=== PATIENT | female | born 2000 | race Two or more races ===

== ENCOUNTER 2024-12-10 14:35 | Emergency (ER) | payer MEDICAID, SELFPAY ==
[2024-12-10 14:36] VITALS: BMI 29.9
[2024-12-10 14:51] VITALS: BP 108/76; PULSE 105; RESP 20; TEMP 38.2; O2SAT 95
--- NOTE | 2024-12-10 14:55 | PD.EDURI ---
Upper Respiratory Inf. RME/HPI General Chief Complaint: Flu Like Symptoms Stated Complaint: COUGH, CHILLS, FEVER, BODYACHES, BACK PAIN Time Seen by Provider: 12/10/24 14:49 Arrival date/time: 12/10/24 14:35 24-year-old female reports with complaints of several day history is of bodyaches fevers cough chills runny nose. Patient states that she has taken some [id number] medications with no improvement of symptoms. She denies chest pain nausea vomiting abdominal pain weakness or fatigue. She reports difficulty with deep breaths and episodically Limitations: no limitations Related Data Home Medications ?Medication ?Instructions ?Recorded ?Confirmed nitrofurantoin 100 mg PO QDAY 12/07/22 12/07/22 monohydrate/macrocrystals 100 mg capsule Previous Rx's ?Medication ?Instructions ?Recorded hydrocodone 5 mg-acetaminophen 325 1 tab PO Q6H PRN pain #14 tabs 12/08/22 mg tablet ibuprofen 600 mg tablet 600 mg PO Q6H PRN 4 #20 tabs 12/08/22 ibuprofen 800 mg tablet (IBU) 800 mg PO Q8H #20 tabs 01/05/24 pseudoephedrine HCl 120 mg 120 mg PO Q12H PRN nasal 01/05/24 tablet,extended release congestion #30 tabs Allergies Allergy/AdvReac Type Severity Reaction Status Date / Time No Known Allergies Allergy Verified 12/10/24 14:39 Review of Systems Constitutional Constitutional: Reports body ache(s), Reports chills, Reports fever(s) and Denies headache(s) ENT Ears, Nose, Mouth, and Throat: Denies dizziness, Denies headache(s), Reports sinus pressure and Denies sore throat Cardiovascular Cardiovascular: Denies chest pain and Reports dyspnea Respiratory Respiratory: Reports cough and Reports dyspnea Gastrointestinal Gastrointestinal: Denies nausea and Denies vomiting Integumentary/Breasts Skin/Breast: Denies erythema and Denies rash Neurologic Neurologic: Denies dizziness and Denies headache(s) Hematologic/Lymphatic Hematologic/Lymphatic: Denies easy bleeding and Denies easy bruising Past Medical History Past Medical History NEUROLOGIC: Negative Neurological Disorders or Seizures CARDIAC: Negative Cardiac Disorders, Congestive Heart Failure, Edema, Cellulitis or Varicose Veins RESPIRATORY: Negative Chronic Obstructive Pulmonary Disease (COPD), Tuberculosis or Sleep Apnea GASTROINTESTINAL: Positive Gastrointestinal Disorders, Gall Bladder Disease (danial 2020) and Gastroesophageal Reflux Disease; Negative Hepatitis or Colorectal Cancer GENITOURINARY: Negative Genitourinary Disorders, Renal Disease or Prostate Cancer REPRODUCTIVE: Positive Previous Pregnancies; Negative Breast Cancer, Pelvic Inflammatory Disease or Testicular Cancer MUSCULOSKELETAL: Negative Musculoskeletal Disorders or Bone Cancer ENDOCRINE: Negative Endocrine Disorders, Diabetes Mellitus Type 1 or Diabetes Mellitus Type 2 HEMATOLOGIC: Negative Blood Disorders or Anemia PSYCHO/SOCIAL: Positive Depression and Anxiety; Negative Self-Mutilation, Attention Deficit Disorder, Attention Deficit Hyperactivity Disorder, Depression or Post Traumatic Stress Disorder OTHER HISTORY: Negative Hospitalization, Autoimmune Disease, Down Syndrome, Developmental Delay, Shingles, Falls, Blood Transfusions, Blood Transfusion Reaction, Anesthesia Reactions, Organ Transplant, Chemotherapy, Radiation Therapy, Hyperbaric Therapy, MRSA, VRSA, Vancomycin-Resistant Enterococci, Human Immunodeficiency Virus (HIV), Chicken Pox, Measles, Mumps, Rubella ([place] Measles), Pertussis, Clostridium Difficile, Cancer, Breast Cancer, Cervical Cancer, Colorectal Cancer, Lung Cancer, Ovarian Cancer, Prostate Cancer or Testicular Cancer Family History FAMILY HISTORY: Positive Family Cancer (maternal grandmother stomach cancer, maternal aunt stomach); Negative Family Psychiatric Problems, Family Respiratory Disorders, Family Cardiac Disorders, Family Gastrointestinal Problems, Family Surgery or Family Anesthesia Reaction Surgical History SURGICAL: Negative Cardiac Surgery, Open Heart Surgery, Coronary Artery Bypass Graft, Valve Replacement, Vascular Surgery, Coronary Stent, Cardiac Catheterization, Pacemaker, Angiogram, Auto Implanted Cardiovert Defib, Carotid Endarterectomy, Endocrine Surgery, Ear Surgery, Tympanostomy Tube, Eye Surgery, Nose Surgery, Oral Surgery, Tonsillectomy, Adenoidectomy, Cochlear Implant, Corneal Transplant, Throat Surgery, Abdominal Surgery, Nephrectomy, Joint Replacement, Neurologic Surgery, Mastectomy, Section, Vasectomy or Organ Transplant Social History SMOKING STATUS: Never smoker SECOND HAND EXPOSURE: Yes (mother smokes outside) ED Exam General Limitations: Present no limitations General appearance: Present alert and in no apparent distress Head Head exam: Present atraumatic Eye Eye exam: Present normal appearance, PERRL and EOMI ENT ENT exam: Present normal exam, normal oropharynx and mucous membranes moist Neck Neck exam: Present normal inspection, full ROM and trachea midline Chest Chest inspection: Present normal inspection and symmetric chest wall rise Respiratory Respiratory exam: Present normal lung sounds bilaterally Cardiovascular Cardiovascular exam: Present regular rate, normal rhythm and normal heart sounds Abdominal Exam Abdominal exam: Present soft and normal bowel sounds Extremities Exam Extremities exam: Present normal inspection and full ROM Back Exam Back exam: Present normal inspection and full ROM Neurological Exam Neurological exam: Present alert, oriented X3 and CN II-XII intact Psychiatric Psychiatric exam: Present normal affect and normal mood Skin Skin exam: Present warm, dry, intact and normal color Course Quality Measures none Orders Category Date Time Status Bedside COVID-19 Antigen Test NOW Care 12/10/24 14:54 Active Bedside Influenza A&B Antigen Test NOW Care 12/10/24 14:55 Completed XR chest 2V Stat Exams 12/10/24 14:56 Completed ALBUTEROL RT 0.5ml [Proventil Rt 0.5ml] Med 12/10/24 15:21 Discontinued 2.5 mg INH X1 ONE Sodium Chloride Rt Nuzhat 0.9% [NS Rt Nuzhat 0.9%] Med 12/10/24 15:21 Active 3 ml INH PRN PRN Vital Signs Vital signs: Vital Signs Temperature 100.7 F H 12/10/24 14:51 Pulse Rate 105 H 12/10/24 14:51 Respiratory Rate 20 12/10/24 14:51 Blood Pressure 108/76 12/10/24 14:51 Pulse Oximetry (%) 95 12/10/24 14:51 Oxygen Delivery Method Room Air 12/10/24 14:51 Upper Respiratory Infection Patient data External records reviewed:: None Clinical information provided by:: patient Social determinants that could affect healthcare access:: none Patient has the following chronic illnesses:: none How is presenting disease/condition affected by chronic disease/condition?: no chronic disease Evaluation data The following diagnostics were reviewed and interpreted by me:: lab results Lab and/or radiology exams considered but not ordered:: none Interpretation Summary: COVID-negative flu positive chest x-ray negative for infiltrates or opacities Medications / Prescriptions Medications or Prescriptions considered but not ordered:: None Medication administrations:: Medication Administration History Sodium Chloride (Sodium Chloride Rt Nuzhat 0.9% 3 Ml Nebu) 3 ml INH PRN PRN PRN Reason: SOLN Stop: 01/09/25 15:20 Last Admin: 12/10/24 16:01 Dose: 3 ml Documented By: VINCENT Discontinued Medications Albuterol (Albuterol Rt 2.5 Mg/0.5 Ml Nebu) 2.5 mg INH X1 ONE Stop: 12/10/24 15:22 Last Admin: 12/10/24 16:01 Dose: 2.5 mg Documented By: VINCENT Albuterol neb treatment Consultations Consultation(s) initiated? (list below): No Diagnosis Upper Respiratory Differential Diagnosis: upper respiratory infection, viral infection and influenza Most likely diagnosis given after review of the tests above:: Influenza A Admission Indicated Admission indicated?: not indicated Admission Request Was there a request for admission?: No Disposition Plan Disposition Plan: Discharge Discharge Attestation Discharge Attestation: The patient and all family members were given an opportunity to ask questions and understood the discharge instructions. Discharge instructions specifically effects, indications for sooner follow up or return to the emergency department, and the expected course of current diagnosis. Patient condition: Stable Discharge Plan Plan Patient Disposition: HOME (Self Care) Prescriptions/Referrals Prescriptions/Med Rec: No Action ibuprofen [IBU] 800 mg tablet 800 mg PO Q8H Qty: 20 0RF pseudoephedrine HCl 120 mg tablet extended release 120 mg PO Q12H PRN (Reason: nasal congestion) Qty: 30 0RF nitrofurantoin monohyd/m-cryst 100 mg capsule 100 mg PO QDAY Patient Comments: TAKE 1 CAPSULE BY MOUTH TWICE A DAY hydrocodone-acetaminophen 5-325 mg tablet 1 tab PO Q6H MDD 4 PRN (Reason: pain) Qty: 14 0RF ibuprofen 600 mg tablet 600 mg PO Q6H PRN (Reason: 4) Qty: 20 0RF Problem List Clinical Impression: Influenza A Patient/Caregiver Discharge Instructions Discharge Activity: activity as tolerated Education Materials: ED Influenza (Adult) Additional Instructions: Your lab test were positive for the flu take medications as directed, hydrate well, get plenty of rest and follow up with PCP if you are not better in 5 days. The cough associated with the flu virus can sometimes last for several weeks after all other symptoms have gone, take OTC cough medication as needed for your cough Print Language: Ukrainian Stand Alone Forms: [employer] Award Info., Work/School Release, Patient Portal Info Letter
--- NOTE | 2024-12-10 14:56 | XR_ITS ---
Examination: PA lateral chest 2 views TECHNIQUE: Upright PA lateral chest 2 views Exam date and time: December 10, 2024 1509 hours INDICATIONS: Fever coughing headache beginning today with dyspnea FINDINGS: Normal heart size Lungs are clear. The osseous structures are intact IMPRESSION: No active disease
[2024-12-10 16:01] VITALS: PULSE 125
[2024-12-10] MEDS: SODIUM CHLORIDE RT SOL 0.9% 3 ML NEBU INH (16:01)
[2024-12-10] MEDS: ALBUTEROL RT 2.5 MG/0.5 ML NEBU INH (16:01)
[2024-12-10 16:02] VITALS: PULSE 120; RESP 26; O2SAT 99
== END 2024-12-10 16:31 | disposition home or self-care (01) ==
PROVIDERS: Emergency Provider Emergency Medicine
DX: J10.1 Influenza due to other identified influenza virus with other respiratory manifestations (principal)
CPT/HCPCS: 71046; 87400; 87811; 94640; 99283

== ENCOUNTER 2025-04-03 02:18 | Emergency (ER) | payer MEDICAID, SELFPAY ==
[2025-04-03 02:19] VITALS: BMI 29.7
[2025-04-03 02:26] VITALS: BP 121/86; PULSE 86; RESP 19; TEMP 36.9; O2SAT 100
--- NOTE | 2025-04-03 02:29 | PD.EDURI ---
Upper Respiratory Inf. RME/HPI General Chief Complaint: Flu Like Symptoms Stated Complaint: COUGH CONGESTION Time Seen by Provider: 04/03/25 02:28 Arrival date/time: 04/03/25 02:18 RME / HPI RME / HPI Narrative: This section includes all my notes and documentations, including HPI, PE, and ED course. Kalin Kathleen MD HPI: 24 y/o female with Hx Gall Bladder Disease, Gastroesophageal Reflux Disease, and Anxiety presents to ED c/o several days with cough, congestion, sore throat, and low fever. Patient was diagnosed with Strep throat on Tuesday and was prescribed Amoxicillin. Patient is mostly concerned with severe cough that induces vomiting. No other complaints. ROS: All negative except as documented in HPI. Physical Exam: General: Alert and oriented. No acute distress when remaining still. Eyes: Conjunctivae and lids clear. ENT: No nasal congestion. Neck: Supple. Heart: RRR. Lungs: No respiratory distress. Hacking cough. Good air movement with scattered rhonchi. No wheezing, rales. Abdomen: Soft and nontender. Normal bowel sounds. No distension. No rebound or guarding. Back: No CVA tenderness. Skin: Warm and dry. Neuro: Alert and oriented X 3. At this point, diagnoses include Strep Throat, Lower Respiratory Infection Treatment here included Tylenol with Codeine, Prednisone. Significant improvement Based on my best medical judgment, made decision no further evaluation or treatment indicated at this time. Patient understands and agrees to the discharge instructions customized and printed, see below. Discharge instructions from Dr. Kathleen: --No physical exertion for 3 days to help rest the lungs. ?No smoking or exposure to smoking or pets or dust or cold or humidity. -- Amoxicillin to kill the germs causing the strep throat. --Prednisone as needed for cough. --Albuterol 2 puffs every 4-6 hours as needed for cough or shortness of breath. --Tylenol codeine for severe cough or pain. --See a private doctor next week for recheck if not completely better. --Seek immediate medical care with worsening or with any concerns. Kalin Kathleen MD Related Data Home Medications ?Medication ?Instructions ?Recorded ?Confirmed nitrofurantoin 100 mg PO QDAY 12/07/22 12/07/22 monohydrate/macrocrystals 100 mg capsule Previous Rx's ?Medication ?Instructions ?Recorded hydrocodone 5 mg-acetaminophen 325 1 tab PO Q6H PRN pain #14 tabs 12/08/22 mg tablet ibuprofen 600 mg tablet 600 mg PO Q6H PRN 4 #20 tabs 12/08/22 ibuprofen 800 mg tablet (IBU) 800 mg PO Q8H #20 tabs 01/05/24 pseudoephedrine HCl 120 mg 120 mg PO Q12H PRN nasal 01/05/24 tablet,extended release congestion #30 tabs acetaminophen 300 mg-codeine 30 mg 2 tab PO Q8H PRN pain #20 tabs 04/03/25 tablet albuterol sulfate 90 mcg/actuation 2 puff inhalation Q6H PRN 04/03/25 aerosol inhaler shortness of breath or wheezing #8.5 grams prednisone 20 mg tablet 20 mg PO BID PRN Cough #6 tabs 04/03/25 Allergies Allergy/AdvReac Type Severity Reaction Status Date / Time No Known Allergies Allergy Verified 04/03/25 02:22 Review of Systems Review of Systems Systems Reviewed: All systems reviewed, normal except as documented Past Medical History Past Medical History GASTROINTESTINAL: Positive Gastrointestinal Disorders, Gall Bladder Disease (danial 2020) and Gastroesophageal Reflux Disease REPRODUCTIVE: Positive Previous Pregnancies PSYCHO/SOCIAL: Positive Depression and Anxiety Family History FAMILY HISTORY: Positive Family Cancer (maternal grandmother stomach cancer, maternal aunt stomach) Social History SECOND HAND EXPOSURE: Yes (mother smokes outside) ED Exam Narrative Physical exam: Refer to HPI above Course Quality Measures none Orders Category Date Time Status ACETAMINOPHEN w/COD 300-30 [Tylenol w/Cod #3] Med 04/03/25 02:28 Discontinued 2 tab PO X1 ONE predniSONE Med 04/03/25 02:28 Discontinued 60 mg PO X1 ONE Vital Signs Vital signs: Vital Signs Temperature 98.5 F 04/03/25 02:26 Pulse Rate 86 04/03/25 02:26 Respiratory Rate 19 04/03/25 02:26 Blood Pressure 121/86 H 04/03/25 02:26 Pulse Oximetry (%) 100 04/03/25 02:26 Oxygen Delivery Method Room Air 04/03/25 02:26 Upper Respiratory Infection MDM Narrative MDM Narrative:: Scribe Attestation: I, Nara Pandey, am scribing for and in the presence of Dr. Kathleen. Provider Notation: Although this document has been carefully reviewed, there may still be some phonetic and other typographical errors.? These errors are purely grammatical due to imperfections in the software program and should not be construed in any way to? compromise the substance of the patient's medical care during this visit. 24 y/o female with Hx Gall Bladder Disease, Gastroesophageal Reflux Disease, and Anxiety presents to ED c/o several days with cough, congestion, sore throat, and low fever. Patient was diagnosed with Strep throat on Tuesday and was prescribed Amoxicillin. Patient is mostly concerned with severe cough that induces vomiting. No other complaints. Patient data External records reviewed:: [facility] previous records (Review prior Ed records from 12/10/24. Patient was seen for Influenza A.) Clinical information provided by:: patient Social determinants that could affect healthcare access:: none Patient has the following chronic illnesses:: Gall Bladder Disease, Gastroesophageal Reflux Disease, Depression and Anxiety How is presenting disease/condition affected by chronic disease/condition?: exacerbated by Evaluation data The following diagnostics were reviewed and interpreted by me:: other (specify) (N/A) Lab and/or radiology exams considered but not ordered:: None Interpretation Summary: N/A Medications / Prescriptions Medications or Prescriptions considered but not ordered:: None Medication administrations:: Medication Administration History Discontinued Medications Acetaminophen/Codeine Phosphate (Acetaminophen W/Cod 300-30 Tablet) 2 tab PO X1 ONE Stop: 04/03/25 02:29 Last Admin: 04/03/25 02:56 Dose: 2 tab Documented By: JUAN LUIS Prednisone (Prednisone 20 Mg Tablet) 60 mg PO X1 ONE Stop: 04/03/25 02:29 Last Admin: 04/03/25 02:57 Dose: 60 mg Documented By: JUAN LUIS Tylenol with Codeine, Prednisone Consultations Consultation(s) initiated? (list below): No Diagnosis Upper Respiratory Differential Diagnosis: upper respiratory infection, viral infection, bronchitis, influenza, pharyngitis and other (Pneumonia) Most likely diagnosis given after review of the tests above:: Strep Throat, Lower Respiratory Infection Admission Indicated Admission indicated?: not indicated Explain why admission is indicated or not indicated:: With significant improvement, there was no indication for admission. Admission Request Was there a request for admission?: No Disposition Plan Disposition Plan: Discharge Discharge Attestation Discharge Attestation: The patient and all family members were given an opportunity to ask questions and understood the discharge instructions. Discharge instructions specifically effects, indications for sooner follow up or return to the emergency department, and the expected course of current diagnosis. Patient condition: Stable Discharge Plan Plan Patient Disposition: HOME (Self Care) Prescriptions/Referrals Prescriptions/Med Rec: New prednisone 20 mg tablet 20 mg PO BID PRN (Reason: Cough) Qty: 6 6RF Taper: Prednisone Taper 20 mg DAILY for 2 Days and 0 Hour 10 mg DAILY for 2 Days and 0 Hour 5 mg DAILY for 7 Days and 0 Hour acetaminophen-codeine 300-30 mg tablet 2 tab PO Q8H MDD 6 PRN (Reason: pain) Qty: 20 0RF albuterol sulfate 90 mcg/actuation HFA aerosol inhaler 2 puff inhalation Q6H PRN (Reason: shortness of breath or wheezing) Qty: 8.5 0RF No Action ibuprofen [IBU] 800 mg tablet 800 mg PO Q8H Qty: 20 0RF pseudoephedrine HCl 120 mg tablet extended release 120 mg PO Q12H PRN (Reason: nasal congestion) Qty: 30 0RF nitrofurantoin monohyd/m-cryst 100 mg capsule 100 mg PO QDAY Patient Comments: TAKE 1 CAPSULE BY MOUTH TWICE A DAY hydrocodone-acetaminophen 5-325 mg tablet 1 tab PO Q6H MDD 4 PRN (Reason: pain) Qty: 14 0RF ibuprofen 600 mg tablet 600 mg PO Q6H PRN (Reason: 4) Qty: 20 0RF Referrals: Krish Guzman MD [Primary Care Provider] - In 1 week Problem List Clinical Impression: Lower respiratory infection, Strep throat Patient/Caregiver Discharge Instructions Discharge Activity: activity as tolerated Education Materials: ED Bronchitis with Wheezing (Adult), ED Pharyngitis, Strep (Confirmed) Additional Instructions: Discharge instructions from Dr. Kathleen: --No physical exertion for 3 days to help rest the lungs. ?No smoking or exposure to smoking or pets or dust or cold or humidity. -- Amoxicillin to kill the germs causing the strep throat. --Prednisone as needed for cough. --Albuterol 2 puffs every 4-6 hours as needed for cough or shortness of breath. --Tylenol codeine for severe cough or pain. --See a private doctor next week for recheck if not completely better. --Seek immediate medical care with worsening or with any concerns. Print Language: Indian Stand Alone Forms: [employer] Award Info., Patient Portal Info Letter
[2025-04-03] MEDS: ACETAMINOPHEN w/COD 300-30 TABLET 2 TAB PO (02:56)
[2025-04-03] MEDS: predniSONE 20 MG TABLET 60 MG PO (02:57)
== END 2025-04-03 04:33 | disposition home or self-care (01) ==
PROVIDERS: Emergency Provider Emergency Medicine; PCP Family Medicine
DX: J02.0 Streptococcal pharyngitis (principal); J22 Unspecified acute lower respiratory infection
CPT/HCPCS: 87400; 87811; 99282; J7512; A9270

== ENCOUNTER 2025-04-10 16:27 | Emergency (ER) | payer MEDICAID, SELFPAY ==
[2025-04-10 16:35] VITALS: BP 112/78; PULSE 99; RESP 20; TEMP 38.6; O2SAT 95
--- NOTE | 2025-04-10 16:38 | XR_ITS ---
Examination: CT abdomen with intravenous contrast CT pelvis with intravenous contrast 2-D coronal reconstructions 2-D sagittal reconstructions Date and time of exam:April 10, 2025 1742 hours Comparison April 28, 2020 INDICATIONS: Onset right lower abdominal pain beginning 2 days ago. CTDI: vol (mGy) 9.57 DLP: (mGycm) 563 Technique: Multiple axial sections of the abdomen and pelvis have been obtained. 64 slice high-resolution scanner used. 3 mm axial sections have been obtained, post intravenous injection 60 cc Isovue 370 2-D sagittal, coronal reconstructions obtained. Low dose protocols were performed. One or more of the following dose reduction techniques were used; automated exposure control, adjustment of the mA and/or KV according to patient size, use of iterative reconstruction technique. Findings: No focal liver or splenic lesions Absent gallbladder No pancreatic or adrenal mass. Focal area of edema in the right kidney axial image 94 Minimal wall thickening right ureter Normal appendix No renal or ureteral calculi No bowel obstruction Anteverted uterus IMPRESSION: Acute right pyelonephritis
[2025-04-10 16:48] VITALS: TEMP 38.6
[2025-04-10] MEDS: ACETAMINOPHEN 500 MG TABLET 1000 MG PO (16:48)
[2025-04-10 16:55] LABS: Basophils % (Auto) 0 % (0-2.5); Eosinophils % (Auto) 0 % (0-10); Hematocrit 41.4 % (36.0-46.0); Hemoglobin 14.5 g/dL (12.0-16.0); Immature Granulocytes % (Auto) 0 % (0-0); Immature Granulocytes Auto 0.03 Thou/mm3 (0.00-0.00); Lymphocytes # (Auto) 1.3 Thou/mm3 (1.0-4.8); Lymphocytes % (Auto) 12 % (10-50); Mean Corpuscular Hemoglobin 31.3 pg (25.0-35.0); Mean Corpuscular Volume 89 fL (80-100); Monocytes # (Auto) 0.8 Thou/mm3 (0.0-0.8); Monocytes % (Auto) 7 % (0-12); Neutrophils # (Auto) 8.7 Thou/mm3 (1.8-7.7); Neutrophils % (Auto) 80 % (37-80); Nucleated Red Blood Cell % 0 /100 WBC (0); Platelet Count 198 Thou/mm3 (140-440); RDW Standard Deviation 41.1 fL (36.4-46.3); Red Blood Count 4.63 Miln/mm3 (4.00-5.20); White Blood Count 10.9 Thou/mm3 (3.6-11.0)
[2025-04-10 17:01] LABS: Collection Type, Urine Clean Catch
[2025-04-10 17:08] LABS: Bilirubin,Urine Negative (Negative); Blood,Urine Negative (Negative); Clarity,Urine Clear (Clear/Hazy); Color,Urine Colorless (Lt Yel-Yel); Culture Indicated,Urine Not Indicated; Glucose, Urine Negative (Negative); Ketones,Urine Negative (Negative); Leukocyte Esterase,Urine Negative (Negative); Nitrite,Urine Negative (Negative); Protein,Urine Negative (Neg - Trace); RBC,Urine < 1 /hpf (0-3); Specific Gravity,Urine 1.004 (1.001-1.035); Squamous Epithelial Cell,Urine 2 /hpf (0-5); Urobilinogen,Urine Negative mg/dL (0.0-1.0); WBC,Urine 1 /hpf (0-5)
[2025-04-10 17:13] LABS: HCG Qualitative,Urine Negative
[2025-04-10 17:14] LABS: Alanine Aminotransferase 47 U/L (10-49); Albumin, Serum 4.6 gm/dL (3.5-5.0); Albumin/Globulin Ratio 2.1 (1.2-2.2); Alkaline Phosphatase 82 U/L (46-116); Anion Gap 11 (7-16); Aspartate Amino Transferase 16 U/L (0-34); BUN/Creatinine Ratio 9 Ratio (12-20); Bilirubin,Total 0.6 mg/dL (0.3-1.2); Blood Urea Nitrogen 8 mg/dL (9-23); Calcium 8.9 mg/dL (8.3-10.6); Calcium (Corrected) 8.9 mg/dL (8.5-10.1); Carbon Dioxide 25.1 mMol/L (20.0-31.0); Chloride 105 mMol/L (98-107); Creatinine (Component) 0.9 mg/dL (0.6-1.3); Globulin 2.2 gm/dL (2.3-3.5); Glucose 97 mg/dL (74-106); Lipase 35 U/L (12-53); Osmolality,Calculated 279 (275-295); Potassium 3.6 mMol/L (3.4-5.1); Sodium 141 mMol/L (136-145); Total Protein 6.8 gm/dL (5.7-8.2); eGFR > 60 See Note
--- NOTE | 2025-04-10 17:50 | PD.EDRME ---
Rapid Medical Screening Exam RME Arrival date/time: 04/10/25 16:27 24-year-old female presents to the emergency department today for complaints of right lower quadrant abdominal pain Chief Complaint: Abdominal Pain Vital signs: Vital Signs Temperature 101.4 F H 04/10/25 16:35 Pulse Rate 99 04/10/25 16:35 Respiratory Rate 20 04/10/25 16:35 Blood Pressure 112/78 04/10/25 16:35 Pulse Oximetry (%) 95 04/10/25 16:35 Oxygen Delivery Method Room Air 04/10/25 16:35
[2025-04-10] MEDS: SODIUM CHLORIDE 0.9% 1000 ML 1,000 ML 999 ML IV (18:35)
[2025-04-10 20:40] VITALS: TEMP 36.9
[2025-04-10 20:41] VITALS: TEMP 36.9
--- NOTE | 2025-04-10 22:33 | EDNOTE_ITS ---
ED Abdominal Pain RME/HPI General Chief Complaint: Abdominal Pain Stated complaint: RIGHT LOWER QUAD PAIN Time seen by provider: 04/10/25 22:32 Arrival date/time: 04/10/25 16:27 RME / HPI RME / HPI narrative: 04/10/25 16:27 24-year-old female presents to the emergency department today for complaints of right lower quadrant abdominal pain -------- Dr. Duran?s Main ED Evaluation: 24yo female s/p cholecystectomy (2019) presents to the ED for a chief complaint of right flank pain x yesterday morning. Patient states she woke up having right flank pain that radiates to her epigastric region. Patient states her pain got progressively worse today, reporting it worsens when she takes a deep breathe and on exertion. Patient states she saw her PCP today, but was unable to get a diagnosis, so she came in for evaluation. Patient denies any N/V, fever, chills, dysuria or any other associated symptoms. NKA. Related Data Home Medications ?Medication ?Instructions ?Recorded ?Confirmed nitrofurantoin 100 mg PO QDAY 12/07/2211/09 monohydrate/macrocrystals 100 mg capsule Previous Rx's ?Medication ?Instructions ?Recorded hydrocodone 5 mg-acetaminophen 325 1 tab PO Q6H PRN pa in #14 tabs 12/08/22 mg tablet ibuprofen 600 mg tablet 600 mg PO Q6H PRN 4 #20 tabs 12/08/22 ibuprofen 800 mg tablet (IBU) 800 mg PO Q8H #20 tabs 0 01/05/24 pseudoephedrine HCl 120 mg 120 mg PO Q12H PRN nasal tablet,extended release congestion #30 tabs acetaminophen 300 mg-codeine 30 mg 2 tab PO Q8H PRN pa in #20 tabs 04/03/25 tablet albuterol sulfate 90 mcg/actuation 2 puff inhalation Q 6H PRN 04/03/25 aerosol inhaler shortness of breath or wheez ing #8.5 grams prednisone 20 mg tablet 20 mg PO BID PRN Cough #6 ta bs 04/03/25 hydrocodone 5 mg-acetaminophen 325 1 tab PO TID PRN pa in #10 tabs 04/10/25 mg tablet Allergies Allergy/AdvReac Type Severity Reaction Status Date / Time No Known Allergies Allergy Verified 04/10/25 16:31 Review of Systems Review of Systems Systems Reviewed: All systems reviewed, normal except as documented Past Medical History Past Medical History NEUROLOGIC: Negative Neurological Disorders or Seizures CARDIAC: Negative Cardiac Disorders, Congestive Heart Failure, Edema, Cellulitis or Varicose Veins RESPIRATORY: Negative Chronic Obstructive Pulmonary Disease (COPD), Asthma, Tuberculosis or Sleep Apnea GASTROINTESTINAL: Positive Gastrointestinal Disorders, Gall Bladder Disease (danial 2020) and Gastroesophageal Reflux Disease; Negative Hepatitis or Colorectal Cancer GENITOURINARY: Negative Genitourinary Disorders, Renal Disease or Prostate Cancer REPRODUCTIVE: Positive Previous Pregnancies; Negative Breast Cancer, Pelvic Inflammatory Disease or Testicular Cancer MUSCULOSKELETAL: Negative Musculoskeletal Disorders or Bone Cancer ENDOCRINE: Negative Endocrine Disorders, Diabetes Mellitus Type 1 or Diabetes Mellitus Type 2 HEMATOLOGIC: Negative Blood Disorders, Anemia or Sickle Cell Disease PSYCHO/SOCIAL: Positive Depression and Anxiety; Negative Self-Mutilation, Attention Deficit Disorder, Attention Deficit Hyperactivity Disorder, Depression or Post Traumatic Stress Disorder OTHER HISTORY: Negative Hospitalization, Autoimmune Disease, Down Syndrome, Developmental Delay, Shingles, Falls, Blood Transfusions, Blood Transfusion Reaction, Anesthesia Reactions, Organ Transplant, Chemotherapy, Radiation Therapy, Hyperbaric Therapy, MRSA, VRSA, Vancomycin-Resistant Enterococci, Human Immunodeficiency Virus (HIV), Chicken Pox, Measles, Mumps, Rubella (M[place]ese Measles), Pertussis, Clostridium Difficile, Cancer, Breast Cancer, Cervical Cancer, Colorectal Cancer, Lung Cancer, Ovarian Cancer, Prostate Cancer or Testicular Cancer Family History FAMILY HISTORY: Positive Family Cancer (maternal grandmother stomach cancer, maternal aunt stomach); Negative Family Psychiatric Problems, Family Respiratory Disorders, Family Cardiac Disorders, Family Gastrointestinal Problems, Family Surgery or Family Anesthesia Reaction Surgical History SURGICAL: Negative Cardiac Surgery, Open Heart Surgery, Coronary Artery Bypass Graft, Valve Replacement, Vascular Surgery, Coronary Stent, Cardiac Catheterization, Pacemaker, Angiogram, Auto Implanted Cardiovert Defib, Carotid Endarterectomy, Endocrine Surgery, Ear Surgery, Tympanostomy Tube, Eye Surgery, Nose Surgery, Oral Surgery, Tonsillectomy, Adenoidectomy, Cochlear Implant, Corneal Transplant, Throat Surgery, Abdominal Surgery, Nephrectomy, Joint Replacement, Neurologic Surgery, Mastectomy, Section, Vasectomy or Organ Transplant Social History SMOKING STATUS: Never smoker SECOND HAND EXPOSURE: Yes (mother smokes outside) ED Exam Narrative Physical exam: GENERAL APPEARANCE: alert and oriented x 4, well-developed, well-nourished, no acute distress VITALS: All vitals were reviewed and the pulse ox is 95% on room air, which is normal according to my interpretation. HEENT: Normocephalic, atraumatic; pupils equal, round, reactive to light; EOMI; mucous membranes pink, moist; oropharynx clear NECK: Supple LUNGS: CTABL; no wheezes, no rales, no rhonchi HEART: Regular rate, regular rhythm; normal S1, S2; no murmurs ABDOMEN: non distended; soft, no tenderness even on deep palpation, no guarding, no rebound; no masses, no organomegaly, no hernia BACK: no CVA tenderness EXTREMITIES: atraumatic; no edema NEUROLOGIC: awake; alert and oriented x4; cranial nerves II-XII grossly intact; no focal sensory or motor deficits PSYCHIATRIC: appropriate mood and affect SKIN: warm, dry, normal color; no rashes Course Quality Measures none Orders Category Date Time Status CT Screening NOW Care 04/10/25 16:38 Active Insert IV NOW Care 04/10/25 16:[address] abdomen pelvis w con Stat Exams 04/10/25 16:38 Completed CBC Stat Lab 04/10/25 16:47 Completed Comprehensive Metabolic Panel Stat Lab 04/10/25 16:47 Completed HCG Qualitative,Urine Stat Lab 04/10/25 16:55 Completed Lipase Stat Lab 04/10/25 16:47 Completed UA, C/S IF [Urinalysis, C/S if Indicated] Stat Lab 04/10/25 16:55 Completed Urine Culture Stat Lab 04/10/25 22:36 Ordered Acetaminophen Ivpb [Ofirmev Inj] Med 04/10/25 22:35 Discontinued 1,000 mg in 100 ml IV X1 Acetaminophen Tab [Tylenol ES Tab] Med 04/10/25 16:39 Discontinued 1,000 mg PO X1 ONE HYDROmorphone INJ [Dilaudid Inj] Med 04/10/25 22:44 Discontinued 0.5 mg IVP X1 ONE Ondansetron Inj [Zofran Inj] Med 04/10/25 22:44 Discontinued 4 mg IVP X1 ONE Sodium Chloride 0.9% 1000 ml [Ns] 1,000 ml Med 04/10/25 16:38 Discontinued IV 999 mls/hr Vital Signs Vital signs: Vital Signs Temperature 101.4 F H 04/10/25 16:35 Pulse Rate 99 04/10/25 16:35 Respiratory Rate 20 04/10/25 16:35 Blood Pressure 112/78 04/10/25 16:35 Pulse Oximetry (%) 95 04/10/25 16:35 Oxygen Delivery Method Room Air 04/10/25 16:35 Abdominal Pain MDM MDM Narrative MDM Narrative:: Scribe Attestation: 04/10/25 - Jo Ann Galvan, bj scribing for and in the presence of Dr. Duran. CT resulted and shows right pyelonephritis, but patient does not have any CVA tenderness or UTI. She has generalized abdominal pain that moves throughout. As the patient is not having or showing signs of UTI, I will not treat her for pyelonephritis. I will send the patient the patient home on [place]. Patient data External records reviewed:: [facility] previous records (Per chart review, patient was seen here on 04/03/25 for lower respiratory infection.) Clinical information provided by:: patient Social determinants that could affect healthcare access:: none Patient has the following chronic illnesses:: none How is presenting disease/condition affected by chronic disease/condition?: no chronic disease Evaluation data The following diagnostics were reviewed and interpreted by me:: lab results and radiology exam(s) Lab and/or radiology exams considered but not ordered:: none Interpretation Summary: CBC normal, CMP normal, UA unremarkable, HCG is negative. [facility] Report Signed Patient: SOBIA EDOUARD. Record#: [id number] Birthdate: 2000 Age/Sex: 24 / F Location: [facility] Attending Dr: Ordering Physician: Nain (RUTH)Ashwin NP Date of Service: 04/10/25 Procedure(s): CT abdomen pelvis w con Accession Number(s): [id number] cc: Nain LEONARD)Ashwin NP; Krish Guzman MD; Donnie Waters MD~ Examination: CT abdomen with intravenous contrast CT pelvis with intravenous contrast 2-D coronal reconstructions 2-D sagittal reconstructions Date and time of exam:April 10, 2025 1742 hours Comparison April 28, 2020 INDICATIONS: Onset right lower abdominal pain beginning 2 days ago. CTDI: vol (mGy) 9.57 DLP: (mGycm) 563 Technique: Multiple axial sections of the abdomen and pelvis have been obtained. 64 slice high-resolution scanner used. 3 mm axial sections have been obtained, post intravenous injection 60 cc Isovue 370 2-D sagittal, coronal reconstructions obtained. Low dose protocols were performed. One or more of the following dose reduction techniques were used; automated exposure control, adjustment of the mA and/or KV according to patient size, use of iterative reconstruction technique. Findings: No focal liver or splenic lesions Absent gallbladder No pancreatic or adrenal mass. Focal area of edema in the right kidney axial image 94 Minimal wall thickening right ureter Normal appendix No renal or ureteral calculi No bowel obstruction Anteverted uterus IMPRESSION: Acute right pyelonephritis Dictated By: Donnie Waters MD Signed By: <Electronically signed by Donnie Waters MD in OV> 04/10/25 1833 Medications / Prescriptions Medications or Prescriptions considered but not ordered:: none Medication administrations:: Medication Administration History Discontinued Medications Acetaminophen (Acetaminophen 500 Mg Tablet) 1,000 mg PO X1 ONE Stop: 04/10/25 16:40 Last Admin: 04/10/25 16:48 Dose: 1,000 mg Documented By: Hydromorphone HCl (Hydromorphone Inj 2 Mg/Ml Vial) 0.5 mg IVP X1 ONE Stop: 04/10/25 22:45 Sodium Chloride (Ns) 1,000 mls @ 999 mls/hr IV .Q1H1M ONE Stop: 04/10/25 17:38 Last Infusion: 04/10/25 20:02 Dose: Infused Documented By: Admin: 04/10/25 18:35 Dose: 999 mls/hr Documented By: Acetaminophen (Ofirmev Inj) 1,000 mg in 100 mls @ 250 mls/hr IV X1 ONE Stop: 04/10/25 22:58 Ondansetron HCl (Ondansetron Inj 2 Mg/Ml Inj 2 Ml) 4 mg IVP X1 ONE; Protocol Stop: 04/10/25 22:45 see above Consultations Consultation(s) initiated? (list below): No Diagnosis Differential diagnosis abdominal pain: gastroenteritis, small bowel obstruction and other (pyelonephritis, retained gallbladder stone) Most likely diagnosis given after review of the tests above:: see clinical impression below Admission Indicated Admission indicated?: not indicated Admission Request Was there a request for admission?: No Disposition Plan Disposition Plan: Discharge Discharge Attestation Discharge Attestation: The patient and all family members were given an opportunity to ask questions and understood the discharge instructions. Discharge instructions specifically effects, indications for sooner follow up or return to the emergency department, and the expected course of current diagnosis. Patient condition: Stable Discharge Plan Plan Patient Disposition: HOME (Self Care) Discharge Disposition comment: Stable for discharge home Patient condition on transfer: Stable Prescriptions/Referrals Prescriptions/Med Rec: New hydrocodone-acetaminophen 5-325 mg tablet 1 tab PO TID MDD 3 tabs PRN (Reason: pain) Qty: 10 0RF No Action ibuprofen [IBU] 800 mg tablet 800 mg PO Q8H Qty: 20 0RF pseudoephedrine HCl 120 mg tablet extended release 120 mg PO Q12H PRN (Reason: nasal congestion) Qty: 30 0RF nitrofurantoin monohyd/m-cryst 100 mg capsule 100 mg PO QDAY Patient Comments: TAKE 1 CAPSULE BY MOUTH TWICE A DAY hydrocodone-acetaminophen 5-325 mg tablet 1 tab PO Q6H MDD 4 PRN (Reason: pain) Qty: 14 0RF ibuprofen 600 mg tablet 600 mg PO Q6H PRN (Reason: 4) Qty: 20 0RF prednisone 20 mg tablet 20 mg PO BID PRN (Reason: Cough) Qty: 6 6RF Taper: Prednisone Taper 20 mg DAILY for 2 Days and 0 Hour 10 mg DAILY for 2 Days and 0 Hour 5 mg DAILY for 7 Days and 0 Hour acetaminophen-codeine 300-30 mg tablet 2 tab PO Q8H MDD 6 PRN (Reason: pain) Qty: 20 0RF albuterol sulfate 90 mcg/actuation HFA aerosol inhaler 2 puff inhalation Q6H PRN (Reason: shortness of breath or wheezing) Qty: 8.5 0RF Referrals: Krish Guzman MD [Primary Care Provider] - In 1 week Problem List Clinical Impression: Abdominal pain Patient/Caregiver Discharge Instructions Discharge Activity: activity as tolerated Education Materials: Abdominal Pain Additional Instructions: Please return to the emergency department if you have any worsening or any further medical problems and we will help you. Otherwise you should follow-up with your primary care doctor within the next several days There is a prescription for pain medication waiting for you at the pharmacy. This medication is called hydrocodone/acetaminophen. You cannot drive after taking this medication. Print Language: Lithuanian Stand Alone Forms: [employer] Patient Portal Info Letter
[2025-04-10] MEDS: ONDANSETRON INJ 2 MG/ML INJ 2 ML 4 MG IVP (23:02)
[2025-04-10] MEDS: HYDROmorphone INJ 2 MG/ML VIAL 0.5 MG IVP (23:07)
[2025-04-10 23:51] VITALS: BP 107/70; PULSE 71; RESP 16; O2SAT 97
== END 2025-04-11 00:54 | disposition home or self-care (01) ==
PROVIDERS: Nurse Practitioner Primary Care; Emergency Provider Emergency Medicine; PCP Family Medicine
DX: R10.31 Right lower quadrant pain (principal); Z90.49 Acquired absence of other specified parts of digestive tract
CPT/HCPCS: 36415; 74177; 80053; 81001; 81025; 83605; 83690; 84145; 85025; 87040; 87086; 96361; 96374; 96375; 99285; A4649; J1171; J2405; J7030; Q9967; A9270

== ENCOUNTER 2025-04-25 02:19 | Emergency (ER) | payer MEDICAID, SELFPAY ==
[2025-04-25 02:20] VITALS: BMI 29.3
[2025-04-25 02:27] VITALS: BP 121/80; PULSE 90; RESP 18; TEMP 36.8; O2SAT 98
[2025-04-25] MEDS: FAMOTIDINE 20 MG TABLET PO (02:44)
[2025-04-25] MEDS: DiphenhydrAMINE 25 MG CAPSULE PO (02:44)
[2025-04-25] MEDS: DEXAMETHASONE SOD PHOS INJ 10 MG/ML VIAL PO (02:45)
[2025-04-25 03:47] VITALS: BP 117/72; PULSE 75; RESP 18; TEMP 37.1; O2SAT 100
--- NOTE | 2025-04-25 04:32 | EDNOTE_ITS ---
ED Allergic Reaction RME/HPI General Chief complaint: Allergic Reaction Stated complaint: HIVES Time Seen by Provider: 04/25/25 02:31 Arrival date/time: 04/25/25 02:19 24F with no significant PMH presents to ED with 1 day of generalized itchy rash. Patient denies new meds, foods, hygiene products, throat swelling, and SOB. Limitations: no limitations Related Data Home Medications ?Medication ?Instructions ?Recorded ?Confirmed nitrofurantoin 100 mg PO QDAY 12/07/2211/09 monohydrate/macrocrystals 100 mg capsule Previous Rx's ?Medication ?Instructions ?Recorded hydrocodone 5 mg-acetaminophen 325 1 tab PO Q6H PRN pa in #14 tabs 12/08/22 mg tablet ibuprofen 600 mg tablet 600 mg PO Q6H PRN 4 #20 tabs 12/08/22 ibuprofen 800 mg tablet (IBU) 800 mg PO Q8H #20 tabs 0 01/05/24 pseudoephedrine HCl 120 mg 120 mg PO Q12H PRN nasal tablet,extended release congestion #30 tabs acetaminophen 300 mg-codeine 30 mg 2 tab PO Q8H PRN pa in #20 tabs 04/03/25 tablet albuterol sulfate 90 mcg/actuation 2 puff inhalation Q 6H PRN 04/03/25 aerosol inhaler shortness of breath or wheez ing #8.5 grams prednisone 20 mg tablet 20 mg PO BID PRN Cough #6 ta bs 04/03/25 hydrocodone 5 mg-acetaminophen 325 1 tab PO TID PRN pa in #10 tabs 04/10/25 mg tablet prednisone 20 mg tablet 20 mg PO BID 3 days #6 tabs 04/25/25 Allergies Allergy/AdvReac Type Severity Reaction Status Date / Time No Known Allergies Allergy Verified 04/25/25 02:20 Review of Systems Review of Systems Systems Reviewed: All systems reviewed, normal except as documented Constitutional Constitutional: Reports system reviewed and no additional complaints, except as documented, Denies fever(s) and Denies headache(s) ENT Ears, Nose, Mouth, and Throat: Denies disequilibrium and Denies headache(s) Cardiovascular Cardiovascular: Reports system reviewed and no additional complaints, except as documented, Denies chest pain and Denies dyspnea Respiratory Respiratory: Reports system reviewed and no additional complaints, except as documented, Denies cough and Denies dyspnea Gastrointestinal Gastrointestinal: Reports system reviewed and no additional complaints, except as documented, Denies abdominal pain, Denies nausea and Denies vomiting Integumentary/Breasts Skin/Breast: Reports as per HPI, Reports pruritus and Reports rash Neurologic Neurologic: Reports system reviewed and no additional complaints, except as documented, Denies confusion, Denies disequilibrium and Denies headache(s) Psychiatric Psychiatric: Denies confusion Past Medical History Past Medical History NEUROLOGIC: Negative Neurological Disorders or Seizures CARDIAC: Negative Cardiac Disorders, Congestive Heart Failure, Edema, Cellulitis or Varicose Veins RESPIRATORY: Negative Chronic Obstructive Pulmonary Disease (COPD), Asthma, Tuberculosis or Sleep Apnea GASTROINTESTINAL: Positive Gastrointestinal Disorders, Gall Bladder Disease (danial 2020) and Gastroesophageal Reflux Disease; Negative Hepatitis or Colorectal Cancer GENITOURINARY: Negative Genitourinary Disorders, Renal Disease or Prostate Cancer REPRODUCTIVE: Positive Previous Pregnancies; Negative Breast Cancer, Pelvic Inflammatory Disease or Testicular Cancer MUSCULOSKELETAL: Negative Musculoskeletal Disorders or Bone Cancer ENDOCRINE: Negative Endocrine Disorders, Diabetes Mellitus Type 1 or Diabetes Mellitus Type 2 HEMATOLOGIC: Negative Blood Disorders, Anemia or Sickle Cell Disease PSYCHO/SOCIAL: Positive Depression and Anxiety; Negative Self-Mutilation, Attention Deficit Disorder, Attention Deficit Hyperactivity Disorder, Depression or Post Traumatic Stress Disorder OTHER HISTORY: Negative Hospitalization, Autoimmune Disease, Down Syndrome, Developmental Delay, Shingles, Falls, Blood Transfusions, Blood Transfusion Reaction, Anesthesia Reactions, Organ Transplant, Chemotherapy, Radiation Therapy, Hyperbaric Therapy, MRSA, VRSA, Vancomycin-Resistant Enterococci, Human Immunodeficiency Virus (HIV), Chicken Pox, Measles, Mumps, Rubella ([place] Measles), Pertussis, Clostridium Difficile, Cancer, Breast Cancer, Cervical Cancer, Colorectal Cancer, Lung Cancer, Ovarian Cancer, Prostate Cancer or Testicular Cancer Family History FAMILY HISTORY: Positive Family Cancer (maternal grandmother stomach cancer, maternal aunt stomach); Negative Family Psychiatric Problems, Family Respiratory Disorders, Family C ardiac Disorders, Family Gastrointestinal Problems, Family Surgery or Family Anesthesia Reaction Surgical History SURGICAL: Negative Cardiac Surgery, Open Heart Surgery, Coronary Artery Bypass Graft, Valve Replacement, Vascular Surgery, Coronary Stent, Cardiac Catheterization, Pacemaker, Angiogram, Auto Implanted Cardiovert Defib, Carotid Endarterectomy, Endocrine Surgery, Ear Surgery, Tympanostomy Tube, Eye Surgery, Nose Surgery, Oral Surgery, Tonsillectomy, Adenoidectomy, Cochlear Implant, Corneal Transplant, Throat Surgery, Abdominal Surgery, Nephrectomy, Joint Repl acement, Neurologic Surgery, Mastectomy, Section, Vasectomy or Organ Transplant Social History SMOKING STATUS: Never smoker SECOND HAND EXPOSURE: Yes (mother smokes outside) ED Exam General Limitations: Present no limitations General appearance: Present alert and in no apparent distress Head Head exam: Present atraumatic Eye Eye exam: Present normal appearance, PERRL and EOMI ENT ENT exam: Present normal exam, normal oropharynx and mucous membranes moist Neck Neck exam: Present normal inspection, full ROM and trachea midline Chest Chest inspection: Present normal inspection and symmetric chest wall rise Respiratory Respiratory exam: Present normal lung sounds bilaterally Cardiovascular Cardiovascular exam: Present regular rate, normal rhythm and normal heart sounds Abdominal Exam Abdominal exam: Present soft and normal bowel sounds Extremities Exam Extremities exam: Present normal inspection and full ROM Back Exam Back exam: Present normal inspection and full ROM Neurological Exam Neurological exam: Present alert, oriented X3 and CN II-XII intact Psychiatric Psychiatric exam: Present normal affect and normal mood Skin Skin exam: Present warm, dry, intact, normal color and rash Course Quality Measures none Orders Category Date Time Status Dexamethasone Inj [Decadron Inj] Med 04/25/25 02:31 Discontinued 10 mg PO X1 ONE DiphenhydrAMINE [Benadryl] Med 04/25/25 02:31 Discontinued 25 mg PO X1 ONE Famotidine [Pepcid] Med 04/25/25 02:31 Discontinued 20 mg PO X1 ONE Vital Signs Vital signs: Vital Signs Temperature 98.3 F 04/25/25 02:27 Pulse Rate 90 04/25/25 02:27 Respiratory Rate 18 04/25/25 02:27 Blood Pressure 121/80 04/25/25 02:27 Pulse Oximetry (%) 98 04/25/25 02:27 Oxygen Delivery Method Room Air 04/25/25 02:27 O2 at 98% on RA and WNLs Allergic Reaction MDM Narrative MDM Narrative:: 24F with no significant PMH presents to ED with 1 day of generalized itchy rash. Patient denies new meds, foods, hygiene products, throat swelling, and SOB. Physical exam reveals generalized urticarial rash. Normal WOB. Patient is afebrile, calm, and alert. Meds improved symptoms. Patient data External records reviewed:: [facility] previous records Clinical information provided by:: patient Social determinants that could affect healthcare access:: mental health Patient has the following chronic illnesses:: none How is presenting disease/condition affected by chronic disease/condition?: no chronic disease Evaluation data The following diagnostics were reviewed and interpreted by me:: other (specify) (none) Lab and/or radiology exams considered but not ordered:: not ordered Interpretation Summary: n/a Medications / Prescriptions Medications or Prescriptions considered but not ordered:: ordered Medication administrations:: Medication Administration History Discontinued Medications Dexamethasone Sodium Phosphate (Dexamethasone Sod Phos Inj 10 Mg/Ml Vial) 10 mg PO X1 ONE Stop: 04/25/25 02:32 Last Admin: 04/25/25 02:45 Dose: 10 mg Documented By: KELLY Comments: [employer] Diphenhydramine HCl (Diphenhydramine 25 Mg Capsule) 25 mg PO X1 ONE Stop: 04/25/25 02:32 Last Admin: 04/25/25 02:44 Dose: 25 mg Documented By: KELLY Famotidine (Famotidine 20 Mg Tablet) 20 mg PO X1 ONE Stop: 04/25/25 02:32 Last Admin: 04/25/25 02:44 Dose: 20 mg Documented By: KELLY above Consultations Consultation(s) initiated? (list below): No Diagnosis Differential Diagnosis allergic reaction: anaphylaxis, allergic reaction, angioedema, contact dermatitis, adverse reaction to drug, viral enanthem and urticaria Most likely diagnosis given after review of the tests above:: urticaria Admission Indicated Admission indicated?: not indicated Admission Request Was there a request for admission?: No Disposition Plan Disposition Plan: Discharge Discharge Attestation Discharge Attestation: The patient and all family members were given an opportunity to ask questions and understood the discharge instructions. Discharge instructions specifically effects, indications for sooner follow up or return to the emergency department, and the expected course of current diagnosis. Patient condition: Stable Discharge Plan Plan Patient Disposition: HOME (Self Care) Discharge Disposition comment: Stable Prescriptions/Referrals Prescriptions/Med Rec: New prednisone 20 mg tablet 20 mg PO BID 3 Days Qty: 6 0RF No Action ibuprofen [IBU] 800 mg tablet 800 mg PO Q8H Qty: 20 0RF pseudoephedrine HCl 120 mg tablet extended release 120 mg PO Q12H PRN (Reason: nasal congestion) Qty: 30 0RF hydrocodone-acetaminophen 5-325 mg tablet 1 tab PO TID MDD 3 tabs PRN (Reason: pain) Qty: 10 0RF nitrofurantoin monohyd/m-cryst 100 mg capsule 100 mg PO QDAY Patient Comments: TAKE 1 CAPSULE BY MOUTH TWICE A DAY hydrocodone-acetaminophen 5-325 mg tablet 1 tab PO Q6H MDD 4 PRN (Reason: pain) Qty: 14 0RF ibuprofen 600 mg tablet 600 mg PO Q6H PRN (Reason: 4) Qty: 20 0RF prednisone 20 mg tablet 20 mg PO BID PRN (Reason: Cough) Qty: 6 6RF Taper: Prednisone Taper 20 mg DAILY for 2 Days and 0 Hour 10 mg DAILY for 2 Days and 0 Hour 5 mg DAILY for 7 Days and 0 Hour acetaminophen-codeine 300-30 mg tablet 2 tab PO Q8H MDD 6 PRN (Reason: pain) Qty: 20 0RF albuterol sulfate 90 mcg/actuation HFA aerosol inhaler 2 puff inhalation Q6H PRN (Reason: shortness of breath or wheezing) Qty: 8.5 0RF Referrals: Krish Guzman MD [Primary Care Provider] - In 1 week Problem List Clinical Impression: Urticaria Patient/Caregiver Discharge Instructions Education Materials: ED Hives (Adult) Additional Instructions: Please follow-up with PCP within 24-48 hours and return immediately if symptoms worsen. Take OTC antihistamine as needed until symptoms resolve. Finish entire steroid course. Print Language: Greek Stand Alone Forms: Patient Portal Info Letter CHERYL/RONNY Supervising Physician CHERYL/RONNY Supervising Physician: Dr. Mercedes
== END 2025-04-25 03:53 | disposition home or self-care (01) ==
PROVIDERS: Emergency Provider Emergency Medicine; PCP Family Medicine
DX: L50.9 Urticaria, unspecified (principal)
CPT/HCPCS: 99282; J1100; A9270

== ENCOUNTER 2025-11-01 23:50 | Emergency (ER) | payer MEDICAID, SELFPAY ==
[2025-11-01 23:51] VITALS: BMI 31.8
[2025-11-02 00:57] VITALS: BP 118/71; PULSE 77; RESP 18; TEMP 36.8; O2SAT 99
--- NOTE | 2025-11-02 01:10 | PD.EDHAND ---
Upper Extremity Injury RME/HPI General Chief Complaint: Hand/Wrist Problems Stated Complaint: LEFT HAND NAIL TORN OFF Time Seen by Provider: 11/02/25 00:54 Source: patient Arrival date/time: 11/01/25 23:50 Mode of arrival: ambulatory Limitations: no limitations RME / HPI RME / HPI narrative: The patient is an otherwise healthy 24-year-old female who arrives to the ED today for evaluation of left middle finger nailbed avulsion injury that occurred approxi-1 hour prior to arrival. Patient was cooking when she caught her finger on the edge of the ball and ripped the nail back. Patient arrives with pain to the finger and minimal bleeding. Vital signs are stable. No additional injuries noted. Related Data Home Medications ?Medication ?Instructions ?Recorded ?Confirmed nitrofurantoin 100 mg PO QDAY 12/07/22 12/07/22 monohydrate/macrocrystals 100 mg capsule Previous Rx's ?Medication ?Instructions ?Recorded hydrocodone 5 mg-acetaminophen 325 1 tab PO Q6H PRN pain #14 tabs 12/08/22 mg tablet ibuprofen 600 mg tablet 600 mg PO Q6H PRN 4 #20 tabs 12/08/22 ibuprofen 800 mg tablet (IBU) 800 mg PO Q8H #20 tabs 01/05/24 pseudoephedrine HCl 120 mg 120 mg PO Q12H PRN nasal 01/05/24 tablet,extended release congestion #30 tabs acetaminophen 300 mg-codeine 30 mg 2 tab PO Q8H PRN pain #20 tabs 04/03/25 tablet albuterol sulfate 90 mcg/actuation 2 puff inhalation Q6H PRN 04/03/25 aerosol inhaler shortness of breath or wheezing #8.5 grams prednisone 20 mg tablet 20 mg PO BID PRN Cough #6 tabs 04/03/25 hydrocodone 5 mg-acetaminophen 325 1 tab PO TID PRN pain #10 tabs 04/10/25 mg tablet ibuprofen 800 mg tablet (IBU) 800 mg PO Q8H PRN pain #20 tabs 11/02/25 Allergies Allergy/AdvReac Type Severity Reaction Status Date / Time No Known Allergies Allergy Verified 04/25/25 02:20 Review of Systems Review of Systems Systems Reviewed: All systems reviewed, normal except as documented Past Medical History Past Medical History NEUROLOGIC: Negative Neurological Disorders or Seizures CARDIAC: Negative Cardiac Disorders, Congestive Heart Failure, Edema, Cellulitis or Varicose Veins RESPIRATORY: Negative Chronic Obstructive Pulmonary Disease (COPD), Asthma, Tuberculosis or Sleep Apnea GASTROINTESTINAL: Positive Gastrointestinal Disorders, Gall Bladder Disease (danial 2020) and Gastroesophageal Reflux Disease; Negative Hepatitis or Colorectal Cancer GENITOURINARY: Negative Genitourinary Disorders, Renal Disease or Prostate Cancer REPRODUCTIVE: Positive Previous Pregnancies; Negative Breast Cancer, Pelvic Inflammatory Disease or Testicular Cancer MUSCULOSKELETAL: Negative Musculoskeletal Disorders or Bone Cancer ENDOCRINE: Negative Endocrine Disorders, Diabetes Mellitus Type 1 or Diabetes Mellitus Type 2 HEMATOLOGIC: Negative Blood Disorders, Anemia or Sickle Cell Disease PSYCHO/SOCIAL: Positive Depression and Anxiety; Negative Self-Mutilation, Attention Deficit Disorder, Attention Deficit Hyperactivity Disorder, Depression or Post Traumatic Stress Disorder OTHER HISTORY: Negative Hospitalization, Autoimmune Disease, Down Syndrome, Developmental Delay, Shingles, Falls, Blood Transfusions, Blood Transfusion Reaction, Anesthesia Reactions, Organ Transplant, Chemotherapy, Radiation Therapy, Hyperbaric Therapy, MRSA, VRSA, Vancomycin-Resistant Enterococci, Human Immunodeficiency Virus (HIV), Chicken Pox, Measles, Mumps, Rubella ([place] Measles), Pertussis, Clostridium Difficile, Cancer, Breast Cancer, Cervical Cancer, Colorectal Cancer, Lung Cancer, Ovarian Cancer, Prostate Cancer or Testicular Cancer Family History FAMILY HISTORY: Positive Family Cancer (maternal grandmother stomach cancer, maternal aunt stomach); Negative Family Psychiatric Problems, Family Respiratory Disorders, Family Cardiac Disorders, Family Gastrointestinal Problems, Family Surgery or Family Anesthesia Reaction Surgical History SURGICAL: Negative Cardiac Surgery, Open Heart Surgery, Coronary Artery Bypass Graft, Valve Replacement, Vascular Surgery, Coronary Stent, Cardiac Catheterization, Pacemaker, Angiogram, Auto Implanted Cardiovert Defib, Carotid Endarterectomy, Endocrine Surgery, Ear Surgery, Tympanostomy Tube, Eye Surgery, Nose Surgery, Oral Surgery, Tonsillectomy, Adenoidectomy, Cochlear Implant, Corneal Transplant, Throat Surgery, Abdominal Surgery, Nephrectomy, Joint Replacement, Neurologic Surgery, Mastectomy, Section, Vasectomy or Organ Transplant Social History SMOKING STATUS: Never smoker SECOND HAND EXPOSURE: Yes (mother smokes outside) ED Exam Narrative Physical exam: Patient was in mild distress at time of evaluation due to finger pain concerns. General Limitations: Present no limitations General appearance: Present alert and in distress (Mild distress due to left middle finger nailbed concerns) Head Head exam: Present atraumatic Eye Eye exam: Present normal appearance, PERRL and EOMI ENT ENT exam: Present normal exam, normal oropharynx and mucous membranes moist Neck Neck exam: Present normal inspection, full ROM and trachea midline Chest Chest inspection: Present normal inspection and symmetric chest wall rise Respiratory Respiratory exam: Present normal lung sounds bilaterally Cardiovascular Cardiovascular exam: Present regular rate, normal rhythm and normal heart sounds Abdominal Exam Abdominal exam: Present soft and normal bowel sounds Extremities Exam Extremities exam: Present other (Patient displays an avulsed nail on the left middle finger. Minimal blood loss.) Back Exam Back exam: Present normal inspection and full ROM Neurological Exam Neurological exam: Present alert, oriented X3 and CN II-XII intact Psychiatric Psychiatric exam: Present normal affect and normal mood Skin Skin exam: Present warm, dry, intact and normal color Course Quality Measures none Vital Signs Vital signs: Vital Signs Temperature 98.2 F 11/02/25 00:57 Pulse Rate 77 11/02/25 00:57 Respiratory Rate 18 11/02/25 00:57 Blood Pressure 118/71 11/02/25 00:57 Pulse Oximetry (%) 99 11/02/25 00:57 Oxygen Delivery Method Room Air 11/02/25 00:57 As noted above PROCEDURES: Procedure Comment 3 cc of 1% lidocaine was utilized for distal digital field block of the left middle finger. Nail was removed without event. Minimal blood loss. Clean dressing applied. Extremity Injury MDM Narrative MDM Narrative:: Avulsed nail was removed without event. Advised patient to keep the nailbed covered for the next few days until sensitivity has decreased. Pain medication as needed. Patient data External records reviewed:: [facility] previous records Clinical information provided by:: patient Social determinants that could affect healthcare access:: none Patient has the following chronic illnesses:: None How is presenting disease/condition affected by chronic disease/condition?: no chronic disease Evaluation data The following diagnostics were reviewed and interpreted by me:: other (specify) Lab and/or radiology exams considered but not ordered:: None Interpretation Summary: None Medications / Prescriptions Medications or Prescriptions considered but not ordered:: None Medication administrations:: 1% lidocaine Consultations Consultation(s) initiated? (list below): No Diagnosis Upper Extremity Injury Differential Diagnosis: other (Fingernail avulsion) Most likely diagnosis given after review of the tests above:: Fingernail avulsion Admission Indicated Admission indicated?: not indicated Explain why admission is indicated or not indicated:: Unwarranted Admission Request Was there a request for admission?: No Disposition Plan Disposition Plan: Discharge Discharge Attestation Discharge Attestation: The patient and all family members were given an opportunity to ask questions and understood the discharge instructions. Discharge instructions specifically effects, indications for sooner follow up or return to the emergency department, and the expected course of current diagnosis. Patient condition: Stable Discharge Plan Plan Patient Disposition: HOME (Self Care) Prescriptions/Referrals Prescriptions/Med Rec: New ibuprofen [IBU] 800 mg tablet 800 mg PO Q8H PRN (Reason: pain) Qty: 20 0RF No Action ibuprofen [IBU] 800 mg tablet 800 mg PO Q8H Qty: 20 0RF pseudoephedrine HCl 120 mg tablet extended release 120 mg PO Q12H PRN (Reason: nasal congestion) Qty: 30 0RF hydrocodone-acetaminophen 5-325 mg tablet 1 tab PO TID MDD 3 tabs PRN (Reason: pain) Qty: 10 0RF nitrofurantoin monohyd/m-cryst 100 mg capsule 100 mg PO QDAY Patient Comments: TAKE 1 CAPSULE BY MOUTH TWICE A DAY hydrocodone-acetaminophen 5-325 mg tablet 1 tab PO Q6H MDD 4 PRN (Reason: pain) Qty: 14 0RF ibuprofen 600 mg tablet 600 mg PO Q6H PRN (Reason: 4) Qty: 20 0RF prednisone 20 mg tablet 20 mg PO BID PRN (Reason: Cough) Qty: 6 6RF Taper: Prednisone Taper 20 mg DAILY for 2 Days and 0 Hour 10 mg DAILY for 2 Days and 0 Hour 5 mg DAILY for 7 Days and 0 Hour acetaminophen-codeine 300-30 mg tablet 2 tab PO Q8H MDD 6 PRN (Reason: pain) Qty: 20 0RF albuterol sulfate 90 mcg/actuation HFA aerosol inhaler 2 puff inhalation Q6H PRN (Reason: shortness of breath or wheezing) Qty: 8.5 0RF Problem List Clinical Impression: Avulsed fingernail Patient/Caregiver Discharge Instructions Education Materials: ED Detached Fingernail or Toenail Additional Instructions: Advised to medication as needed. Patient should keep the area covered until the nailbed has desensitize. Print Language: Georgian Stand Alone Forms: [facility] Award Info., Patient Portal Info Letter
== END 2025-11-02 01:30 | disposition home or self-care (01) ==
LOC: SERX 11-02 01:32
PROVIDERS: Emergency Provider Emergency Medicine
DX: S61.303A Unspecified open wound of left middle finger with damage to nail, initial encounter (principal); W23.0XXA Caught, crushed, jammed, or pinched between moving objects, initial encounter; Y93.G3 Activity, cooking and baking
CPT/HCPCS: 11730; 99281